=== PATIENT | male | born 1940 | race Caucasian/White ===

== ENCOUNTER → 2018-03-09 | Outpatient (CLI) | payer MEDICARE, BC ==
[~2018-03-09] VITALS: Ht 177.8 cm; Wt 80.0 kg
[~2018-03-09] MED LIST: ACETAMINOPHEN 325 MG TABLET PO PRN; ALLO100T30 PO; ATOR10TA9 PO; EPHEDRINE 50 MG/ML, 1ML IM PRN; FENTANYL PF 100 MCG/2ML IV PRN; FINA5TAB4 PO; GADOBUTROL 10 MMOL/10 ML PFS ONE; MIDAZOLAM 1 MG/ML, 2ML IV PRN; MYCO360T PO; ONDANSETRON 2MG/ML, 2ML ONE; ONDANSETRON ODT 8 MG PO PRN; PROP10TA PO; PROPOFOL 10 MG/ML, 20ML ONE; SIRO1TAB PO; SODIUM CHLORIDE 0.9% 1,000 ML IV SCH
[2018-03-09 10:47] VITALS: BP 134/63
== END | disposition home or self-care (01) ==
LOC: RAD 09:58
PROVIDERS: ATTEND Neurological Surgery
DX: G31.89 Other specified degenerative diseases of nervous system (principal); G20 Parkinson's disease
CPT/HCPCS: 70553; A9585; J2405; J2704; J7030

== ENCOUNTER 2018-03-15 05:36 | Inpatient (IN) | payer MEDICARE, BC ==
[~2018-03-15] VITALS: Ht 185.4 cm; Wt 84.1 kg
[~2018-03-15 05:36] MED LIST changes: -ALLOPURINOL 100 MG TABLET PO SCH; -ATORVASTATIN 10 MG TABLET PO SCH; -BUPIVACAINE/PF-EPI 0.5% 1:200K INFIL ONE; -CEFAZOLIN PMX 1GM/50ML 50 ML IVPB SCH; -FINASTERIDE 5 MG TABLET PO SCH; -PHENYTOIN SODIUM 1,000 MG in SODIUM CHLORIDE 0.9% 100 ML IVPB ONE; -PHENYTOIN SODIUM 50 MG/ML, 5ML IV SCH; -PLEASE ENTER ALLERGIES MC SCH; -POTASSIUM CHLORIDE 40 MEQ in SODIUM CHLORIDE 0.9% 1,000 ML IV SCH; -PROPRANOLOL HCL 10 MG PO SCH; -SENNA/DOCUSATE TABLET PO SCH; -SIROLIMUS 1 MG PO SCH; -THROMBIN 20,000 UNIT VIAL TP ONE
[2018-03-15] MEDS ORDERED: LACTATED RINGERS 1,000 ML IV SCH (06:06)
[2018-03-15] MEDS ORDERED: BUPIVACAINE/PF-EPI 0.5% 1:200K ONE ×2 (06:18→14:02)
[2018-03-15] MEDS ORDERED: THROMBIN 5,000 UNIT VIAL TP ONE (06:19)
[2018-03-15] MEDS ORDERED: NITROPRUSSIDE 25 MG/ML, 2ML ONE (06:19)
[2018-03-15] MEDS ORDERED: MINERAL OIL 10 ML VIAL MC ONE (06:19)
[2018-03-15] MEDS ORDERED: CEFUROXIME 1.5 GM ONE (06:19)
[2018-03-15] MEDS ORDERED: SODIUM BICARBONATE 1 MEQ/ML, 50ML VIAL ONE (06:19)
[2018-03-15] MEDS ORDERED: BACITRACIN OINT 500U/GM, 15 GM ONE (06:20)
[2018-03-15] MEDS ORDERED: BACITRACIN 50,000 UNIT ONE ×2 (06:20→14:03)
[2018-03-15] MEDS ORDERED: LIDOCAINE/MPF 2%-EPI 1:200K, 20 ML ONE (06:30)
[2018-03-15] MEDS ORDERED: ESMOLOL/NS 2,500 MG/250 ML PREMIX ONE (07:08)
[2018-03-15] MEDS ORDERED: ROCURONIUM 10 MG/ML,10ML ONE (07:40)
[2018-03-15] MEDS ORDERED: ONDANSETRON 2MG/ML, 2ML ONE (07:40)
[2018-03-15] MEDS ORDERED: PROPOFOL 10 MG/ML, 20ML ONE (07:40)
[2018-03-15] MEDS ORDERED: FENTANYL PF 100 MCG/2ML ONE (13:59)
[2018-03-15] MEDS ORDERED: MANNITOL PMX 20% 500 ML ONE (14:02)
[2018-03-15] MEDS ORDERED: THROMBIN 20,000 UNIT VIAL TP ONE ×2 (14:02→14:39)
[2018-03-15] MEDS ORDERED: BUPIVACAINE/PF-EPI 0.5% 1:200K INFIL ONE (14:38)
[2018-03-15] MEDS ORDERED: SODIUM CHLORIDE 0.9% 1,000 ML IV SCH (15:37)
[2018-03-15] MEDS ORDERED: LORazepam 2 MG/ML, 1ML IVPush PRN (16:00)
[2018-03-15] MEDS ORDERED: BISACODYL 10 MG SUPP PR PRN (16:00)
[2018-03-15] MEDS ORDERED: POLYETHYLENE GLYCOL 17 GM PACKET PO PRN (16:00)
[2018-03-15] MEDS ORDERED: ONDANSETRON ODT 4 MG PO PRN (16:00)
[2018-03-15] MEDS ORDERED: ONDANSETRON 2MG/ML, 2ML IVPush PRN (16:00)
[2018-03-15] MEDS ORDERED: ENALAPRILAT 1.25 MG/ML, 2ML IVPush PRN (16:00)
[2018-03-15] MEDS ORDERED: LABETALOL 5MG/ML, 20ML IVPush PRN (16:00)
[2018-03-15] MEDS: morphine SULFATE 10 MG/ML, 1ML IVPush PRN (17:19)
[2018-03-15] MEDS: LEVETIRACETAM 1,000 MG in SODIUM CHLORIDE 0.9% 100 ML IV SCH (17:29)
[2018-03-15 18:00] LABS: BASOPHILS # (AUTO) 0.23 x10^3/uL (0-0.1); BASOPHILS % (AUTO) 2 % (0-1); EOSINOPHILS # (AUTO) 0.01 x10^3/uL (0-0.4); EOSINOPHILS % (AUTO) 0 % (1-7); LYMPHOCYTES # (AUTO) 1.23 x10^3/uL (1-3.4); LYMPHOCYTES % (AUTO) 8 % (22-44); MD NO; MEAN CORPUSCULAR HEMOGLOBIN 31.2 pg (27.5-34.5); MEAN CORPUSCULAR HGB CONC 33.5 g/dL (33.2-36.2); MEAN CORPUSCULAR VOLUME 93.1 fL (81-97); MEAN PLATELET VOLUME 7.8 fL (7.4-10.4); MONOCYTES # (AUTO) 0.64 x10^3/uL (0.2-0.8); MONOCYTES % (AUTO) 4 % (2-9); NEUTROPHILS # (AUTO) 12.66 x10^3/uL (1.8-6.8); NEUTROPHILS % (AUTO) 86 % (42-75); PLATELET COUNT 235 x10^3/uL (130-400); RED BLOOD COUNT 4.08 x10^6/uL (4.38-5.82); RED CELL DISTRIBUTION WIDTH 13.8 % (9.4-14.8)
[2018-03-15 18:09] LABS: ANION GAP 7 mmol/L (5-15); CALCIUM 8.1 mg/dL (8.5-10.1); CHLORIDE 115 mmol/L (98-107); CREATININE 0.99 mg/dL (0.7-1.3)
[2018-03-15] MEDS ORDERED: PHARMACY MAY ADJ FOR RENAL FX MC SCH (18:30)
[2018-03-15] MEDS ORDERED: LIDOCAINE-MPF 1%, 2ML ENDO PRN (18:30)
[2018-03-15] MEDS: PROPOFOL 100 ML IV PRN (18:39)
[2018-03-15 18:40] LABS: HEMOGLOBIN A1C 6.7 % (4.2-6.3)
[2018-03-15] MEDS ORDERED: CEFUROXIME 1.5 GM in SODIUM CHLORIDE 0.9% 100 ML IV SCH (21:00)
[2018-03-15] MEDS: CEFUROXIME 1.5 GM in SODIUM CHLORIDE 0.9% 50 ML IV SCH (21:04)
[2018-03-15] MEDS: FAMOTIDINE 20 MG/2 ML IVPush SCH (21:04)
[2018-03-15] MEDS: PROPRANOLOL 10 MG TABLET PO SCH (21:13)
[2018-03-15] MEDS: MYCOPHENOLATE MOFETIL 200 MG/ML SUSP PO SCH (21:19)
[2018-03-16 04:00] VITALS: BP 137/54
[2018-03-16] MEDS: LEVETIRACETAM 1,000 MG in SODIUM CHLORIDE 0.9% 100 ML IV SCH ×2 (04:02→16:19)
[2018-03-16 04:24] LABS: FIO2 40 %
[2018-03-16 04:49] LABS: ALANINE AMINOTRANSFERASE 16 U/L (12-78); ANION GAP 14 mmol/L (5-15); CALCIUM 7.7 mg/dL (8.5-10.1); CHLORIDE 113 mmol/L (98-107); CREATININE 0.98 mg/dL (0.7-1.3)
[2018-03-16 04:51] LABS: BASOPHILS # (AUTO) 0.06 x10^3/uL (0-0.1); BASOPHILS % (AUTO) 0 % (0-1); EOSINOPHILS % (AUTO) 0 % (1-7); LYMPHOCYTES # (AUTO) 0.94 x10^3/uL (1-3.4); LYMPHOCYTES % (AUTO) 7 % (22-44); MD NO; MEAN CORPUSCULAR HEMOGLOBIN 30.3 pg (27.5-34.5); MEAN CORPUSCULAR HGB CONC 32.9 g/dL (33.2-36.2); MEAN PLATELET VOLUME 8.6 fL (7.4-10.4); MONOCYTES # (AUTO) 0.61 x10^3/uL (0.2-0.8); MONOCYTES % (AUTO) 5 % (2-9); NEUTROPHILS # (AUTO) 11.21 x10^3/uL (1.8-6.8); NEUTROPHILS % (AUTO) 88 % (42-75); PLATELET COUNT 217 x10^3/uL (130-400); RED BLOOD COUNT 4.15 x10^6/uL (4.38-5.82); RED CELL DISTRIBUTION WIDTH 13.3 % (9.4-14.8)
[2018-03-16 04:52] LABS: ALKALINE PHOSPHATASE 66 U/L (45-117); BILIRUBIN,TOTAL 0.8 mg/dL (0.2-1.0); TOTAL PROTEIN 6.1 g/dL (6.4-8.2)
[2018-03-16] MEDS: CEFUROXIME 1.5 GM in SODIUM CHLORIDE 0.9% 50 ML IV SCH ×3 (05:08→21:17)
[2018-03-16] MEDS ORDERED: MAGNESIUM SULFATE PMX 4GM/100M 100 ML IV ONE (08:00)
[2018-03-16] MEDS: FINASTERIDE 5 MG TABLET PO SCH (09:00)
[2018-03-16] MEDS: SIROLIMUS 1 MG PO SCH (09:00)
[2018-03-16] MEDS: PROPOFOL 100 ML IV PRN (11:25)
[2018-03-16] MEDS: SENNA/DOCUSATE TABLET PO SCH (11:26)
[2018-03-16] MEDS: PROPRANOLOL 10 MG TABLET PO SCH ×2 (11:26→21:17)
[2018-03-16] MEDS: ATORVASTATIN 10 MG TABLET PO SCH (11:26)
[2018-03-16] MEDS: MYCOPHENOLATE MOFETIL 200 MG/ML SUSP PO SCH ×2 (11:27→21:17)
[2018-03-16] MEDS: FAMOTIDINE 20 MG/2 ML IVPush SCH ×2 (11:27→21:17)
[2018-03-16] MEDS: SODIUM CHLORIDE 0.9% 1,000 ML IV SCH (21:16)
[2018-03-17] MEDS: PROPOFOL 100 ML IV PRN ×2 (03:31→23:56)
[2018-03-17 04:00] VITALS: BP 133/45
[2018-03-17] MEDS: LEVETIRACETAM 1,000 MG in SODIUM CHLORIDE 0.9% 100 ML IV SCH ×2 (04:21→16:29)
[2018-03-17 04:51] LABS: BASOPHILS # (AUTO) 0.55 x10^3/uL (0-0.1); BASOPHILS % (AUTO) 4 % (0-1); EOSINOPHILS % (AUTO) 0 % (1-7); LYMPHOCYTES # (AUTO) 1.05 x10^3/uL (1-3.4); LYMPHOCYTES % (AUTO) 7 % (22-44); MD NO; MEAN CORPUSCULAR HEMOGLOBIN 30.6 pg (27.5-34.5); MEAN CORPUSCULAR HGB CONC 33.6 g/dL (33.2-36.2); MEAN CORPUSCULAR VOLUME 91.1 fL (81-97); MEAN PLATELET VOLUME 8.6 fL (7.4-10.4); MONOCYTES # (AUTO) 1.27 x10^3/uL (0.2-0.8); MONOCYTES % (AUTO) 9 % (2-9); NEUTROPHILS # (AUTO) 11.71 x10^3/uL (1.8-6.8); NEUTROPHILS % (AUTO) 80 % (42-75); PLATELET COUNT 199 x10^3/uL (130-400); RED BLOOD COUNT 3.86 x10^6/uL (4.38-5.82); RED CELL DISTRIBUTION WIDTH 13.2 % (9.4-14.8)
[2018-03-17] MEDS: CEFUROXIME 1.5 GM in SODIUM CHLORIDE 0.9% 50 ML IV SCH ×3 (05:28→21:00)
[2018-03-17 07:39] LABS: ANION GAP 7 mmol/L (5-15); CALCIUM 8.1 mg/dL (8.5-10.1); CHLORIDE 114 mmol/L (98-107); CREATININE 0.88 mg/dL (0.7-1.3)
[2018-03-17] MEDS: SODIUM CHLORIDE 0.9% 1,000 ML IV SCH ×2 (08:52→19:24)
[2018-03-17] MEDS: SIROLIMUS 1 MG PO SCH (08:55)
[2018-03-17] MEDS: FINASTERIDE 5 MG TABLET PO SCH (08:55)
[2018-03-17] MEDS: FAMOTIDINE 20 MG/2 ML IVPush SCH ×2 (09:01→21:00)
[2018-03-17] MEDS: PROPRANOLOL 10 MG TABLET PO SCH ×2 (09:01→21:07)
[2018-03-17] MEDS: SENNA/DOCUSATE TABLET PO SCH (09:01)
[2018-03-17] MEDS: ATORVASTATIN 10 MG TABLET PO SCH (09:01)
[2018-03-17] MEDS: MYCOPHENOLATE MOFETIL 200 MG/ML SUSP PO SCH ×2 (09:02→21:00)
[2018-03-18 04:00] VITALS: BP 141/49
[2018-03-18] MEDS: LEVETIRACETAM 1,000 MG in SODIUM CHLORIDE 0.9% 100 ML IV SCH ×2 (04:11→16:03)
[2018-03-18 04:34] LABS: BASOPHILS # (AUTO) 0.18 x10^3/uL (0-0.1); BASOPHILS % (AUTO) 2 % (0-1); EOSINOPHILS # (AUTO) 0.04 x10^3/uL (0-0.4); EOSINOPHILS % (AUTO) 0 % (1-7); LYMPHOCYTES # (AUTO) 0.96 x10^3/uL (1-3.4); LYMPHOCYTES % (AUTO) 8 % (22-44); MD NO; MEAN CORPUSCULAR HEMOGLOBIN 30.6 pg (27.5-34.5); MEAN CORPUSCULAR HGB CONC 33.1 g/dL (33.2-36.2); MEAN CORPUSCULAR VOLUME 92.3 fL (81-97); MEAN PLATELET VOLUME 8.5 fL (7.4-10.4); MONOCYTES % (AUTO) 10 % (2-9); NEUTROPHILS % (AUTO) 80 % (42-75); PLATELET COUNT 200 x10^3/uL (130-400); RED BLOOD COUNT 3.78 x10^6/uL (4.38-5.82); RED CELL DISTRIBUTION WIDTH 13.4 % (9.4-14.8)
[2018-03-18] MEDS: CEFUROXIME 1.5 GM in SODIUM CHLORIDE 0.9% 50 ML IV SCH ×3 (05:20→20:52)
[2018-03-18] MEDS: SODIUM CHLORIDE 0.9% 1,000 ML IV SCH ×2 (05:20→16:03)
[2018-03-18 05:30] LABS: ALBUMIN 2.3 g/dL (3.4-5.0); ANION GAP 8 mmol/L (5-15); CHLORIDE 116 mmol/L (98-107); CREATININE 0.75 mg/dL (0.7-1.3)
[2018-03-18] MEDS ORDERED: POTASSIUM CHLORIDE 20 MEQ PACKET PO ONE (08:00)
[2018-03-18] MEDS: SIROLIMUS 1 MG PO SCH (09:00)
[2018-03-18] MEDS: MYCOPHENOLATE MOFETIL 200 MG/ML SUSP PO SCH ×2 (09:00→20:52)
[2018-03-18] MEDS: FINASTERIDE 5 MG TABLET PO SCH (09:00)
[2018-03-18] MEDS: FAMOTIDINE 20 MG/2 ML IVPush SCH ×2 (09:53→20:53)
[2018-03-18] MEDS: ATORVASTATIN 10 MG TABLET PO SCH (09:54)
[2018-03-18] MEDS: SENNA/DOCUSATE TABLET PO SCH (09:54)
[2018-03-18] MEDS: PROPRANOLOL 10 MG TABLET PO SCH (09:54)
[2018-03-18] MEDS ORDERED: FILTER MICRON IV ONE (11:30)
[2018-03-18] MEDS ORDERED: PHENYTOIN SODIUM 1,000 MG in SODIUM CHLORIDE 0.9% 100 ML IV ONE (11:30)
[2018-03-18] MEDS: PROPOFOL 100 ML IV PRN ×2 (12:00→21:50)
[2018-03-18] MEDS: ACETAMINOPHEN 325 MG TABLET PO PRN (16:31)
[2018-03-18] MEDS ORDERED: SODIUM CHLORIDE 0.9%, 500ML IVBOLUS ONE (18:00)
[2018-03-19] MEDS: SODIUM CHLORIDE 0.9% 1,000 ML IV SCH (00:03)
[2018-03-19] MEDS: LEVETIRACETAM 1,000 MG in SODIUM CHLORIDE 0.9% 100 ML IV SCH ×2 (04:11→16:13)
[2018-03-19 04:18] LABS: BASOPHILS # (AUTO) 0.12 x10^3/uL (0-0.1); BASOPHILS % (AUTO) 1 % (0-1); EOSINOPHILS # (AUTO) 0.06 x10^3/uL (0-0.4); EOSINOPHILS % (AUTO) 1 % (1-7); LYMPHOCYTES # (AUTO) 1.04 x10^3/uL (1-3.4); LYMPHOCYTES % (AUTO) 10 % (22-44); MD NO; MEAN CORPUSCULAR HGB CONC 33.2 g/dL (33.2-36.2); MEAN CORPUSCULAR VOLUME 90.4 fL (81-97); MEAN PLATELET VOLUME 8.4 fL (7.4-10.4); MONOCYTES # (AUTO) 1.08 x10^3/uL (0.2-0.8); MONOCYTES % (AUTO) 10 % (2-9); NEUTROPHILS # (AUTO) 8.31 x10^3/uL (1.8-6.8); NEUTROPHILS % (AUTO) 78 % (42-75); PLATELET COUNT 196 x10^3/uL (130-400); RED BLOOD COUNT 3.64 x10^6/uL (4.38-5.82); RED CELL DISTRIBUTION WIDTH 13.4 % (9.4-14.8)
[2018-03-19] MEDS: CEFUROXIME 1.5 GM in SODIUM CHLORIDE 0.9% 50 ML IV SCH ×3 (05:03→21:08)
[2018-03-19] MEDS: PROPOFOL 100 ML IV PRN ×2 (05:35→23:16)
[2018-03-19] MEDS: SIROLIMUS 1 MG PO SCH (09:00)
[2018-03-19] MEDS: MYCOPHENOLATE MOFETIL 200 MG/ML SUSP PO SCH ×2 (09:25→21:08)
[2018-03-19] MEDS: SENNA/DOCUSATE TABLET PO SCH (09:25)
[2018-03-19] MEDS: ATORVASTATIN 10 MG TABLET PO SCH (09:25)
[2018-03-19] MEDS: FINASTERIDE 5 MG TABLET PO SCH (09:25)
[2018-03-19] MEDS: FAMOTIDINE 20 MG/2 ML IVPush SCH ×2 (09:25→21:07)
[2018-03-19 10:14] LABS: ANION GAP 8 mmol/L (5-15); CALCIUM 7.9 mg/dL (8.5-10.1); CHLORIDE 117 mmol/L (98-107); CREATININE 0.77 mg/dL (0.7-1.3)
[2018-03-19] MEDS ORDERED: FUROSEMIDE 20 MG/2 ML IV ONE (16:00)
[2018-03-19] MEDS: ACETAMINOPHEN 325 MG TABLET PO PRN (17:14)
[2018-03-20] MEDS: LEVETIRACETAM 1,000 MG in SODIUM CHLORIDE 0.9% 100 ML IV SCH ×2 (03:52→17:34)
[2018-03-20] MEDS: ACETAMINOPHEN 325 MG TABLET PO PRN ×2 (03:56→14:30)
[2018-03-20 05:03] LABS: BASOPHILS # (AUTO) 0.08 x10^3/uL (0-0.1); BASOPHILS % (AUTO) 1 % (0-1); EOSINOPHILS # (AUTO) 0.03 x10^3/uL (0-0.4); EOSINOPHILS % (AUTO) 0 % (1-7); LYMPHOCYTES # (AUTO) 0.87 x10^3/uL (1-3.4); LYMPHOCYTES % (AUTO) 10 % (22-44); MD NO; MEAN CORPUSCULAR HGB CONC 33.8 g/dL (33.2-36.2); MEAN CORPUSCULAR VOLUME 91.7 fL (81-97); MEAN PLATELET VOLUME 8.6 fL (7.4-10.4); MONOCYTES # (AUTO) 0.94 x10^3/uL (0.2-0.8); MONOCYTES % (AUTO) 10 % (2-9); NEUTROPHILS # (AUTO) 7.08 x10^3/uL (1.8-6.8); NEUTROPHILS % (AUTO) 79 % (42-75); PLATELET COUNT 221 x10^3/uL (130-400); RED BLOOD COUNT 3.67 x10^6/uL (4.38-5.82); RED CELL DISTRIBUTION WIDTH 13.6 % (9.4-14.8)
[2018-03-20 05:04] LABS: CHLORIDE 111 mmol/L (98-107)
[2018-03-20] MEDS: CEFUROXIME 1.5 GM in SODIUM CHLORIDE 0.9% 50 ML IV SCH ×3 (05:08→21:19)
[2018-03-20 05:09] LABS: ALANINE AMINOTRANSFERASE 10 U/L (12-78); ALKALINE PHOSPHATASE 65 U/L (45-117); ANION GAP 6 mmol/L (5-15); BILIRUBIN,TOTAL 0.5 mg/dL (0.2-1.0); TOTAL PROTEIN 5.9 g/dL (6.4-8.2)
[2018-03-20] MEDS ORDERED: POTASSIUM CHLORIDE 10% 40 MEQ/30 ML UDC PO ONE (08:00)
[2018-03-20] MEDS: FINASTERIDE 5 MG TABLET PO SCH (09:00)
[2018-03-20] MEDS ORDERED: VANCOMYCIN PER PHARMACY MC PRN (09:00)
[2018-03-20] MEDS ORDERED: PHARMACOKINETIC MONITORING MC PRN (09:30)
[2018-03-20] MEDS ORDERED: PHARMACOKINETIC CONSULTATION MC ONE (09:30)
[2018-03-20] MEDS: MYCOPHENOLATE MOFETIL 200 MG/ML SUSP PO SCH ×2 (09:35→21:19)
[2018-03-20] MEDS: SIROLIMUS NG SCH (09:35)
[2018-03-20] MEDS: VANCOMYCIN 1,700 MG in SODIUM CHLORIDE 0.9% 250 ML IV SCH (09:36)
[2018-03-20] MEDS: ATORVASTATIN 10 MG TABLET PO SCH (09:53)
[2018-03-20] MEDS: SENNA/DOCUSATE TABLET PO SCH (09:53)
[2018-03-20] MEDS: FAMOTIDINE 20 MG/2 ML IVPush SCH ×2 (09:53→21:19)
[2018-03-21] MEDS: morphine SULFATE 10 MG/ML, 1ML IVPush PRN ×2 (03:45→10:51)
[2018-03-21] MEDS: LEVETIRACETAM 1,000 MG in SODIUM CHLORIDE 0.9% 100 ML IV SCH ×2 (04:00→17:54)
[2018-03-21] MEDS: CEFUROXIME 1.5 GM in SODIUM CHLORIDE 0.9% 50 ML IV SCH ×3 (04:55→20:53)
[2018-03-21 05:17] LABS: BASOPHILS # (AUTO) 0.09 x10^3/uL (0-0.1); BASOPHILS % (AUTO) 1 % (0-1); EOSINOPHILS # (AUTO) 0.05 x10^3/uL (0-0.4); EOSINOPHILS % (AUTO) 1 % (1-7); LYMPHOCYTES # (AUTO) 1.02 x10^3/uL (1-3.4); LYMPHOCYTES % (AUTO) 10 % (22-44); MD NO; MEAN CORPUSCULAR HEMOGLOBIN 30.4 pg (27.5-34.5); MEAN CORPUSCULAR HGB CONC 33.6 g/dL (33.2-36.2); MEAN CORPUSCULAR VOLUME 90.5 fL (81-97); MEAN PLATELET VOLUME 8.3 fL (7.4-10.4); MONOCYTES # (AUTO) 0.88 x10^3/uL (0.2-0.8); MONOCYTES % (AUTO) 8 % (2-9); NEUTROPHILS # (AUTO) 8.44 x10^3/uL (1.8-6.8); NEUTROPHILS % (AUTO) 81 % (42-75); PLATELET COUNT 241 x10^3/uL (130-400); RED BLOOD COUNT 3.66 x10^6/uL (4.38-5.82); RED CELL DISTRIBUTION WIDTH 13.4 % (9.4-14.8)
[2018-03-21 05:30] LABS: ALBUMIN 2.1 g/dL (3.4-5.0); ANION GAP 8 mmol/L (5-15); CALCIUM 8.5 mg/dL (8.5-10.1); CHLORIDE 107 mmol/L (98-107)
[2018-03-21 05:33] LABS: ALANINE AMINOTRANSFERASE 20 U/L (12-78); ALKALINE PHOSPHATASE 63 U/L (45-117); BILIRUBIN,TOTAL 0.4 mg/dL (0.2-1.0); CREATININE 0.76 mg/dL (0.7-1.3); TRIGLYCERIDES 149 mg/dL (50-200)
[2018-03-21] MEDS: SENNA/DOCUSATE TABLET PO SCH (09:00)
[2018-03-21] MEDS: ATORVASTATIN 10 MG TABLET PO SCH (09:00)
[2018-03-21] MEDS: SIROLIMUS NG SCH (09:00)
[2018-03-21] MEDS: FINASTERIDE 5 MG TABLET PO SCH (09:00)
[2018-03-21] MEDS: VANCOMYCIN 1,700 MG in SODIUM CHLORIDE 0.9% 250 ML IV SCH (11:01)
[2018-03-21] MEDS: FAMOTIDINE 20 MG/2 ML IVPush SCH ×2 (11:01→20:53)
[2018-03-21] MEDS: MYCOPHENOLATE MOFETIL 200 MG/ML SUSP PO SCH ×2 (11:01→20:54)
[2018-03-21 22:27] VITALS: BP 101/70
[2018-03-22] MEDS: LEVETIRACETAM 1,000 MG in SODIUM CHLORIDE 0.9% 100 ML IV SCH ×2 (03:58→17:09)
[2018-03-22 04:32] LABS: BASOPHILS # (AUTO) 0.11 x10^3/uL (0-0.1); BASOPHILS % (AUTO) 1 % (0-1); EOSINOPHILS # (AUTO) 0.06 x10^3/uL (0-0.4); EOSINOPHILS % (AUTO) 0 % (1-7); LYMPHOCYTES # (AUTO) 1.16 x10^3/uL (1-3.4); LYMPHOCYTES % (AUTO) 8 % (22-44); MD NO; MEAN CORPUSCULAR HEMOGLOBIN 30.9 pg (27.5-34.5); MEAN CORPUSCULAR HGB CONC 34.2 g/dL (33.2-36.2); MEAN CORPUSCULAR VOLUME 90.3 fL (81-97); MEAN PLATELET VOLUME 8.4 fL (7.4-10.4); MONOCYTES # (AUTO) 1.28 x10^3/uL (0.2-0.8); MONOCYTES % (AUTO) 9 % (2-9); NEUTROPHILS # (AUTO) 11.82 x10^3/uL (1.8-6.8); NEUTROPHILS % (AUTO) 82 % (42-75); PLATELET COUNT 280 x10^3/uL (130-400); RED BLOOD COUNT 3.99 x10^6/uL (4.38-5.82); RED CELL DISTRIBUTION WIDTH 13.3 % (9.4-14.8)
[2018-03-22 04:44] LABS: ANION GAP 8 mmol/L (5-15); CALCIUM 8.4 mg/dL (8.5-10.1); CHLORIDE 103 mmol/L (98-107)
[2018-03-22] MEDS: CEFUROXIME 1.5 GM in SODIUM CHLORIDE 0.9% 50 ML IV SCH ×3 (04:44→21:10)
[2018-03-22] MEDS: SIROLIMUS NG SCH (09:00)
[2018-03-22] MEDS: SENNA/DOCUSATE TABLET PO SCH (09:38)
[2018-03-22] MEDS: MYCOPHENOLATE MOFETIL 200 MG/ML SUSP PO SCH ×2 (09:39→21:13)
[2018-03-22] MEDS: FINASTERIDE 5 MG TABLET PO SCH (09:39)
[2018-03-22] MEDS: FAMOTIDINE 20 MG/2 ML IVPush SCH ×2 (09:39→21:09)
[2018-03-22] MEDS: ATORVASTATIN 10 MG TABLET PO SCH (09:39)
[2018-03-22] MEDS: morphine SULFATE 10 MG/ML, 1ML IVPush PRN ×2 (19:51→23:47)
[2018-03-23] MEDS: LEVETIRACETAM 1,000 MG in SODIUM CHLORIDE 0.9% 100 ML IV SCH ×2 (03:01→16:25)
[2018-03-23 04:00] VITALS: BP 132/54
[2018-03-23] MEDS: morphine SULFATE 10 MG/ML, 1ML IVPush PRN (04:17)
[2018-03-23] MEDS: CEFUROXIME 1.5 GM in SODIUM CHLORIDE 0.9% 50 ML IV SCH (04:17)
[2018-03-23 04:34] LABS: ANION GAP 8 mmol/L (5-15); CALCIUM 8.7 mg/dL (8.5-10.1); CHLORIDE 100 mmol/L (98-107); CREATININE 0.74 mg/dL (0.7-1.3)
[2018-03-23 04:36] LABS: BASOPHILS # (AUTO) 0.09 x10^3/uL (0-0.1); BASOPHILS % (AUTO) 1 % (0-1); EOSINOPHILS # (AUTO) 0.08 x10^3/uL (0-0.4); EOSINOPHILS % (AUTO) 1 % (1-7); LYMPHOCYTES # (AUTO) 1.01 x10^3/uL (1-3.4); LYMPHOCYTES % (AUTO) 8 % (22-44); MD NO; MEAN CORPUSCULAR HEMOGLOBIN 30.6 pg (27.5-34.5); MEAN CORPUSCULAR HGB CONC 33.9 g/dL (33.2-36.2); MEAN CORPUSCULAR VOLUME 90.3 fL (81-97); MEAN PLATELET VOLUME 7.9 fL (7.4-10.4); MONOCYTES # (AUTO) 1.39 x10^3/uL (0.2-0.8); MONOCYTES % (AUTO) 11 % (2-9); NEUTROPHILS # (AUTO) 10.21 x10^3/uL (1.8-6.8); NEUTROPHILS % (AUTO) 80 % (42-75); PLATELET COUNT 313 x10^3/uL (130-400); RED BLOOD COUNT 4.05 x10^6/uL (4.38-5.82); RED CELL DISTRIBUTION WIDTH 13.3 % (9.4-14.8)
[2018-03-23] MEDS: FAMOTIDINE 20 MG/2 ML IVPush SCH ×2 (08:35→20:23)
[2018-03-23] MEDS: SENNA/DOCUSATE TABLET PO SCH (08:35)
[2018-03-23] MEDS: ATORVASTATIN 10 MG TABLET PO SCH (08:36)
[2018-03-23] MEDS: MYCOPHENOLATE MOFETIL 200 MG/ML SUSP PO SCH ×2 (08:36→20:23)
[2018-03-23] MEDS: SIROLIMUS NG SCH (09:00)
[2018-03-23] MEDS: FINASTERIDE 5 MG TABLET PO SCH (09:00)
[2018-03-23] MEDS ORDERED: CEFAZOLIN 2,000 MG in SODIUM CHLORIDE 0.9% 50 ML IVPB SCH (11:00)
[2018-03-23] MEDS: CEFAZOLIN 2,000 MG in SODIUM CHLORIDE 0.9% 50 ML IVPB SCH ×2 (14:00→20:23)
[2018-03-24 04:00] VITALS: BP 139/52
[2018-03-24] MEDS: LEVETIRACETAM 1,000 MG in SODIUM CHLORIDE 0.9% 100 ML IV SCH (04:09)
[2018-03-24] MEDS: CEFAZOLIN 2,000 MG in SODIUM CHLORIDE 0.9% 50 ML IVPB SCH ×2 (04:25→13:00)
[2018-03-24 04:40] LABS: MEAN CORPUSCULAR HEMOGLOBIN 30.6 pg (27.5-34.5); MEAN CORPUSCULAR VOLUME 90.1 fL (81-97); MEAN PLATELET VOLUME 7.8 fL (7.4-10.4); PLATELET COUNT 284 x10^3/uL (130-400); RED BLOOD COUNT 3.94 x10^6/uL (4.38-5.82); RED CELL DISTRIBUTION WIDTH 13.3 % (9.4-14.8)
[2018-03-24 05:43] LABS: BASOPHILS # (AUTO) 0.14 x10^3/uL (0-0.1); BASOPHILS % (AUTO) 1 % (0-1); EOSINOPHILS # (AUTO) 0.05 x10^3/uL (0-0.4); EOSINOPHILS % (AUTO) 0 % (1-7); LYMPHOCYTES # (AUTO) 1.13 x10^3/uL (1-3.4); LYMPHOCYTES % (AUTO) 9 % (22-44); MD SCAN; MONOCYTES % (AUTO) 12 % (2-9); NEUTROPHILS # (AUTO) 10.08 x10^3/uL (1.8-6.8); NEUTROPHILS % (AUTO) 78 % (42-75)
[2018-03-24] MEDS: SIROLIMUS NG SCH (09:00)
[2018-03-24] MEDS: ATORVASTATIN 10 MG TABLET PO SCH (09:30)
[2018-03-24] MEDS: MYCOPHENOLATE MOFETIL 200 MG/ML SUSP PO SCH (09:30)
[2018-03-24] MEDS: SENNA/DOCUSATE TABLET PO SCH (09:30)
[2018-03-24] MEDS: FINASTERIDE 5 MG TABLET PO SCH (09:30)
[2018-03-24] MEDS: FAMOTIDINE 20 MG/2 ML IVPush SCH (09:30)
[2018-03-24] MEDS ORDERED: ATROPINE OPHTH SOLN 1%, 2ML PO PRN (15:00)
[2018-03-24] MEDS ORDERED: LORazepam 2 MG/ML, 1ML IV ONE (15:00)
[2018-03-24] MEDS ORDERED: morphine SULFATE 10 MG/ML, 1ML IV ONE (15:00)
[2018-03-24] MEDS: LORazepam 2 MG/ML, 1ML IV PRN ×2 (16:25→16:45)
[2018-03-25] MEDS: LORazepam 2 MG/ML, 1ML IV PRN (18:42)
== END 2018-03-26 09:16 | disposition expired | DRG 25 ==
LOC: ORIP 05:36 → CSU 16:26 → CCU 03-21 04:30 → 3NW 03-24 18:00
PROVIDERS: ADMIT Neurological Surgery; ATTEND Neurological Surgery
PROC: 00HE0MZ Insertion of Neurostimulator Lead into Cranial Nerve, Open Approach (ICD-10-PCS; 2018-03-15)
PROC: 00B00ZX Excision of Brain, Open Approach, Diagnostic (ICD-10-PCS; 2018-03-15)
PROC: 00C70ZZ Extirpation of Matter from Cerebral Hemisphere, Open Approach (ICD-10-PCS; principal; 2018-03-15 07:30)
PROC: 5A1955Z Respiratory Ventilation, Greater than 96 Consecutive Hours (ICD-10-PCS; 2018-03-16)
PROC: 0BH17EZ Insertion of Endotracheal Airway into Trachea, Via Natural or Artificial Opening (ICD-10-PCS; 2018-03-16)
DX: G20 Parkinson's disease (principal); J96.00 Acute respiratory failure, unspecified whether with hypoxia or hypercapnia; G93.41 Metabolic encephalopathy; I60.9 Nontraumatic subarachnoid hemorrhage, unspecified; I61.5 Nontraumatic intracerebral hemorrhage, intraventricular; Z94.0 Kidney transplant status; Q61.3 Polycystic kidney, unspecified; Z99.11 Dependence on respirator [ventilator] status; E11.9 Type 2 diabetes mellitus without complications; E78.5 Hyperlipidemia, unspecified; I10 Essential (primary) hypertension; K57.90 Diverticulosis of intestine, part unspecified, without perforation or abscess without bleeding; M10.9 Gout, unspecified; N40.0 Benign prostatic hyperplasia without lower urinary tract symptoms; Z51.5 Encounter for palliative care; Z53.9 Procedure and treatment not carried out, unspecified reason; R60.9 Edema, unspecified; R94.01 Abnormal electroencephalogram [EEG]; Z66 Do not resuscitate; Z79.899 Other long term (current) drug therapy; Z80.1 Family history of malignant neoplasm of trachea, bronchus and lung; Z82.49 Family history of ischemic heart disease and other diseases of the circulatory system; Z83.3 Family history of diabetes mellitus
CPT/HCPCS: 36415; 36600; 70450; 70551; 71045; 80048; 80053; 82040; 82533; 82803; 83036; 83735; 84100; 84443; 84478; 85025; 86850; 86900; 87070; 87081; 87205; 88304; 93005; 94002; 94003; 95812; 95819; C1713; G0378; J0690; J0697; J1165; J1953; J2405; J2704; J3010; J3370; J3490; J7060; C1767; J1940; J2060; J2270; J3475; J7030; J7040; J7050; J7120; S0028

== ENCOUNTER → 2018-03-15 | Day surgery (SDC) | payer MEDICARE, BC ==
[~2018-03-15] VITALS: Ht 177.8 cm; Wt 81.8 kg
[~2018-03-15] MED LIST changes: -ACETAMINOPHEN 325 MG TABLET PO PRN; +ALLOPURINOL 100 MG TABLET PO SCH; +ATORVASTATIN 10 MG TABLET PO SCH; +BUPIVACAINE/PF-EPI 0.5% 1:200K INFIL ONE; +CEFAZOLIN PMX 1GM/50ML 50 ML IVPB SCH; -EPHEDRINE 50 MG/ML, 1ML IM PRN; -FENTANYL PF 100 MCG/2ML IV PRN; +FINASTERIDE 5 MG TABLET PO SCH; -GADOBUTROL 10 MMOL/10 ML PFS ONE; -MIDAZOLAM 1 MG/ML, 2ML IV PRN; -ONDANSETRON 2MG/ML, 2ML ONE; -ONDANSETRON ODT 8 MG PO PRN; +PHENYTOIN SODIUM 1,000 MG in SODIUM CHLORIDE 0.9% 100 ML IVPB ONE; +PHENYTOIN SODIUM 50 MG/ML, 5ML IV SCH; +PLEASE ENTER ALLERGIES MC SCH; +POTASSIUM CHLORIDE 40 MEQ in SODIUM CHLORIDE 0.9% 1,000 ML IV SCH; -PROPOFOL 10 MG/ML, 20ML ONE; +PROPRANOLOL HCL 10 MG PO SCH; +SENNA/DOCUSATE TABLET PO SCH; +SIROLIMUS 1 MG PO SCH; -SODIUM CHLORIDE 0.9% 1,000 ML IV SCH; +THROMBIN 20,000 UNIT VIAL TP ONE
== END | disposition home or self-care (01) ==
LOC: OR 23:17 → UNDOADMIN 23:23 → ORIP 23:23
PROVIDERS: ATTEND Neurological Surgery
DX: Z02.9 Encounter for administrative examinations, unspecified (principal)
CPT/HCPCS: 88304; C1713